=== PATIENT | male | born 1945 | race Caucasian/White ===

== ENCOUNTER → 2023-11-12 08:00 | Outpatient (REF) | payer MEDICARE, SELFPAY ==
[2023-11-12 09:09] LABS: % Basophils 0.8 % (0-2); % Eosinophils 3.4 % (0-6); % Monocytes 11.9 % (1.7-9.3); % Neutrophils 60.9 % (42.2-75.2); Absolute Eosinophils 0.1 10^3/uL (0-0.7); Absolute Lymphocytes 0.9 10^3/uL (1.2-3.4); Absolute Monocytes 0.5 10^3/uL (0.1-0.6); Absolute Neutrophils 2.3 10^3/uL (1.4-6.5); Hematocrit 41.3 % (39.0-52.0); Hemoglobin 13.7 g/dL (13.0-18.0); Mean Corp Hgb Conc. 33.2 g/dL (33.0-37.0); Mean Corpuscular Volume 90.6 fL (80.0-94.0); Mean Platelet Volume 10.3 fL (7.4-10.4); Nucleated Red Blood Cells % 0 % (-); Platelet Count 151 10^3/uL (130-400); Red Blood Cell Count 4.56 10^6/uL (4.70-6.10); Red Cell Dist. Width 14.2 % (11.5-14.5); White Blood Cell Count 3.8 10^3/uL (4.8-10.8)
[2023-11-12 10:18] LABS: Blood Urea Nitrogen 16 mg/dl (9-20); Calcium 9.9 mg/dl (8.4-10.2); Carbon Dioxide 27 mmol/L (22-30); Chloride 103 mmol/L (98-107); Glucose 85 mg/dl (70-99); Potassium 4.5 mmol/L (3.5-5.1); Sodium 139 mmol/L (135-145); eGFR > 60.00
== END ==
LOC: RCS 08:00
PROVIDERS: ATTENDING PHYSICIAN Orthopaedic Surgery; FAMILY PHYSICIAN Family Medicine; OTHER PHYSICIAN Internal Medicine Cardiovascular Disease; OTHER PHYSICIAN Internal Medicine Endocrinology, Diabetes & Metabolism
DX: Z01.818 Encounter for other preprocedural examination (principal); E06.3 Autoimmune thyroiditis
CPT/HCPCS: 36415; 80048; 84443; 85025; 93005

== ENCOUNTER 2024-02-01 00:22 | Inpatient (IN) | payer MEDICARE, SELFPAY ==
[2024-01-31 19:38] VITALS: BP 120/91
[2024-01-31] MEDS: ZOFRAN ODT (ORALLY DISINTEGRATING) 4 MG PO (19:55)
[2024-01-31 21:52] VITALS: BMI 33.5
[2024-01-31 22:00] VITALS: BP 112/72
[2024-01-31 22:10] LABS: % Basophils 0.2 % (0-2); % Eosinophils 0.7 % (0-6); % Immature Granulocytes 0.1 % (0-0.5); % Lymphocytes 6.4 % (20.5-51.1); % Neutrophils 84.6 % (42.2-75.2); Absolute Eosinophils 0.1 10^3/uL (0-0.7); Absolute Lymphocytes 0.6 10^3/uL (1.2-3.4); Absolute Monocytes 0.8 10^3/uL (0.1-0.6); Absolute Neutrophils 8.1 10^3/uL (1.4-6.5); Hematocrit 38.5 % (39.0-52.0); Hemoglobin 13.2 g/dL (13.0-18.0); Mean Corp Hgb Conc. 34.3 g/dL (33.0-37.0); Mean Corpuscular Hgb 30.5 pg (27.0-31.0); Mean Corpuscular Volume 88.9 fL (80.0-94.0); Mean Platelet Volume 9.6 fL (7.4-10.4); Nucleated Red Blood Cells % 0 % (-); Platelet Count 157 10^3/uL (130-400); Red Blood Cell Count 4.33 10^6/uL (4.70-6.10); Red Cell Dist. Width 13.7 % (11.5-14.5); White Blood Cell Count 9.6 10^3/uL (4.8-10.8)
[2024-01-31 22:20] LABS: Lactic Acid 1.9 mmol/L (0.7-2.0)
[2024-01-31 22:29] LABS: ALT (SGPT) 207 U/L (0-50); AST (SGOT) 543 U/L (17-59); Albumin 4.4 g/dl (3.5-5.0); Alkaline Phosphatase 132 U/L (38-126); Blood Urea Nitrogen 21 mg/dl (9-20); Calcium 9.2 mg/dl (8.4-10.2); Carbon Dioxide 27 mmol/L (22-30); Chloride 103 mmol/L (98-107); Estimated Creatinine Clearance 85 ml/min; Glucose 138 mg/dl (70-99); Potassium 4.1 mmol/L (3.5-5.1); Sodium 137 mmol/L (135-145); eGFR > 60.00
[2024-01-31 22:39] LABS: Lipase > 4000 U/L (23-300)
--- NOTE | 2024-01-31 23:06 | ED.GENMED ---
History of Present Illness
General
Chief Complaint: Abdominal Pain
Time Seen by Provider: 01/31/24 21:43
History of Present Illness
History of Present Illness:
78-year-old male presents the emergency department for evaluation of persistent upper abdominal pain since earlier this afternoon. He has had frequent bouts of similar pain radiating through to the thoracic back ongoing for the past several months.
Had an outpatient ultrasound earlier this month that showed cholelithiasis and a outpatient CT scan this morning that was unremarkable. Pain worsened abruptly after the scan prompting him come to the emergency department. Denies any vomiting or
diarrhea. No fevers, chills, dark urine, or felipe colored stool. No prior abd surgeries
Review of Systems
Review of Systems
Allergies reviewed?: Yes
All Other Systems: ROS reviewed and negative except as documented in HPI and ROS
Phy Exam
Physical Exam
Physical Exam:
GEN: Well appearing, NAD, WDWN
Eyes: PERRLA, EOMs intact, no scleral icterus
HENT: NCAT, oral mucosa moist
Lungs: CTAB, no wheezes, rales, rhonchi, normal chest wall excursion
Cardiac: RRR, no M/R/G, no peripheral edema. Radial pulses 2+ bilat
Abdomen: S, focal tenderness to the epigastrium, neg Manzano's
Neuro: AO x 3
MSK: No gross deformity or ecchymosis. No edema. No digital clubbing
Skin: No rashes, petechiae. Normal color, no pallor or jaundice.
Psych: Calm, cooperative, proper hygiene
Course
Orders/Labs/Results
Orders:
Orders
01/31/24 19:44
EKG [Electrocardiogram (*1)] Urgent
Reason for Study: Abdominal Pain
EKG- Treatment ONCE
01/31/24 19:53
Ondansetron Orally Disint [Zofran Odt (Orally Disintegrating)] 4 mg .ROUTE .[facility]
01/31/24 19:54
Ondansetron Orally Disint [Zofran Odt (Orally Disintegrating)] 4 mg PO NOW STA
01/31/24 22:02
CBC/With Diff [Complete Blood Count/With Diff] Urgent
CMP [Comprehensive Metabolic Panel] Urgent
Lactate Level [Lactic Acid] Urgent
Lipase Urgent
01/31/24 22:42
US Abdomen Limited Urgent
Comment:
Reason For Exam: gallstone pancreatitis
01/31/24 22:43
HYDROmorphone [Dilaudid] 0.5 mg IV NOW STA
01/31/24 23:32
Lactated Ringers [Lr] 1,000 ml IV BOLUS
Abnormal Lab Results
01/31/24
22:02
RBC 4.33 L 10^6/uL
(4.70-6.10)
Hct 38.5 L %
(39.0-52.0)
Absolute Neuts (auto) 8.1 H 10^3/uL
(1.4-6.5)
Absolute Lymphs (auto) 0.6 L 10^3/uL
(1.2-3.4)
Absolute Monos (auto) 0.8 H 10^3/uL
(0.1-0.6)
Neutrophils % 84.6 H %
(42.2-75.2)
Lymphocytes % 6.4 L %
(20.5-51.1)
BUN 21 H mg/dl
(9-20)
Glucose 138 H mg/dl
(70-99)
AST 543 H* U/L
(17-59)
ALT 207 H U/L
(0-50)
Alkaline Phosphatase 132 H U/L
(38-126)
Lipase > 4000 H* U/L
(23-300)
01/31/24 22:02
01/31/24 22:02
Vital Signs
Initial and Last Documented VS:
Initial Vital Signs
Temp Pulse Resp BP Pulse Ox
98.2 F 93 22 120/91 98
01/31/24 19:38 01/31/24 19:38 01/31/24 19:38 01/31/24 19:38 01/31/24 19:38
Last Documented Vital Signs
Temp Pulse Resp BP Pulse Ox
98.2 F 70 20 118/75 98
01/31/24 19:38 02/01/24 00:00 02/01/24 00:00 02/01/24 00:00 01/31/24 19:38
MDM/Problems Addressed
MDM/Problems Addressed:
78-year-old male presents with waxing waning abdominal pain. Although CT scan this morning was unremarkable, labs show transaminitis and pancreatitis. Repeat US without evidence of cholecystitis. Will admit for further eval and management
*Critical Care Note
Total Time (30-74mins, 75-104mins- exclusive of procedures): Not Applicable
ED Attending Note
-
Portions of this chart may have been created with voice recognition software.� Occasional wrong word or��sound alike� substitutions may have occurred due to the inherent limitations of voice recognition software.
Discharge Plan
Departure
Patient Disposition: Admit
Date of Disposition: 01/31/24
Time of Disposition: 23:47
Admit to: Med/Surg
Presentation/result/management discussed w/ accepting MD/DO: Hospitalist
Discharge Problem:
Acute gallstone pancreatitis
Interventions
Interventions:
*Risk Screen - Suicide Last Done: 01/31/24 21:52
*General Assessment Last Done: 01/31/24 21:52
*Neglect/Abuse Screening Last Done: 01/31/24 21:52
ED- Fall Risk Assessment Last Done: 01/31/24 21:52
*ED COVID-19 Vaccine History Last Done: 01/31/24 22:01
*Nursing Disposition Last Done: 02/01/24 00:59
AH-Fehosd-[facility] Assessment Last Done: 01/31/24 21:52
Discharge Date and Time
Discharge Date/Time: 02/01/24 01:00
[2024-01-31] MEDS: DILAUDID 0.5 MG IV (23:39)
[2024-01-31] MEDS: LR 1000 IV (23:43)
[2024-02-01] VITALS: BP 118/75
--- NOTE | 2024-02-01 00:25 | HPS.HSE ---
Family Physician
-
Family Physician: Taylor Gomez
Chief Complaint
-
Abd Pain
History of Present Illness
Patient is a 78y M with PMH significant for persistent A-Fib and hypothyroidism who presents to ED complaining of abdominal pain. Patient states that he had his initial episode in July of this year consisting of abdominal pain, flank pain and
N/V. He had severe episodes in July and again in September - lasting several days each time. His symptoms improved after several days of not eating. He noted dark / orange colored urine during those times. He reports 3-4 additional, less severe
episodes since that time - typically with symptoms lasting less than one hour.
He has been evaluated as an outpatient by his PCP and GI. US was done showing gallstones. CT was done (this AM) and was relatively unremarkable.
Following today's CT scan, patient had another episode of fairly severe abdominal and flank pain associated with nausea. He has not had emesis.
He presented to the ED for evaluation.
Currently he feels significantly improved s/p pain medication and antiemetics.
Medical History
Past Medical History
Past Medical History: Reports Other
Additional Past Medical History:
Persistent Atrial Fibrillation
Hypothyroidism
DJD
ALEX s/p UP3
Chronic HFpEF
Past Surgical History: Reports Other
Additional Past Surgical History:
Bilateral TKA
Elbow Surgery
UP3
Thyroid Biopsy
Social History
Tobacco: Non-smoker
Alcohol: Former (Prior social EtOH. No alcohol at all in 2 years.)
Family History
Family History: Not pertinent
Allergies / Home Medications
Allergies reflects when Allergies were last updated in [employer].
Home Medications with original date entered in [employer]
Allergy/Medication List:
Allergies
Allergy/AdvReac Type Severity Reaction Status Date / Time
meperidine [From Demerol] Allergy Anaphylaxis Verified 07/25/24 19:44
Penicillins Allergy Anaphylaxis Verified 01/31/24 19:44
Home Medications
furosemide 20 mg tablet 20 mg PO DAILY 01/31/24
levothyroxine 75 mcg tablet (Synthroid) 75 mcg PO HS 01/31/24
melatonin 10 mg tablet 10 mg PO HS PRN sleep 01/31/24
dbmxtvfz-pe-mahjj 300 mcg-K 60 mcg-lycop 600 mcg-lutein 300 mcg tablet (Centrum Silver Men) 1 tab PO DAILY 01/31/24
rivaroxaban 20 mg tablet (Xarelto) 20 mg PO DAILY 01/31/24
cholecalciferol (vitamin D3) 25 mcg (1,000 unit) tablet 25 mcg PO DAILY 02/01/24
polyethylene glycol 3350 17 gram oral powder packet (Miralax) 17 g PO DAILY 02/01/24
Review of Systems
-
History Source: Patient
A 12 point ROS was completed and negative except as noted: Yes
Constitutional: Denies Fever or Chills
EENT: Denies Sore Throat
Respiratory: Denies Cough or Trouble Breathing
Cardiac: Denies Chest Pain or Palpitations
Abdomen/GI: Reports Abdominal Pain and Nausea; Denies Vomiting, Diarrhea, Constipated or Bloody Stools
: Reports Flank Pain; Denies Dysuria or Frequency
Neurological: Denies Dizzy or Headache
Psych: Denies Depression or Anxiety
Physical Exam
Vital Signs
Vital Signs
Temp Pulse Resp BP Pulse Ox
98.2 F 73 20 112/72 98
01/31/24 19:38 01/31/24 21:52 01/31/24 21:52 01/31/24 22:00 01/31/24 19:38
Physical Exam
General: Other (78y M in mild distress secondary to pain.)
HEENT: Moist mucous membranes and PERRLA
Respiratory: Clear; No Wheezes, Rales or Rhonchi
Cardiac: Irregular Rhythm; No Murmur
GI: Soft, Non Distended, Normal Bowel Sounds and Other (Pos epigastric / LUQ tenderness without rebound or guarding.)
Musculoskeletal: No Clubbing, No Cyanosis and No Edema
Neuro: AO x 3
Laboratory Results
-
01/31/24 22:02
01/31/24 22:02
Laboratory Results
Lactic Acid 1.9 mmol/L (0.7-2.0) 01/31/24 22:
Total Bilirubin 1.0 mg/dl (0.2-1.3) 01/31/24 22:
AST 543 U/L (17-59) H* 01/31/24 22:
ALT 207 U/L (0-50) H 01/31/24 22:
Alkaline Phosphatase 132 U/L (38-126) H 01/31/24 22:
Lipase > 4000 U/L (23-300) H* 01/31/24 22:
Impression/Plan
-
A/P: Patient is a 78y M with PMH significant for A-Fib and hypothyroidism who presents to ED complaining of abdominal pain.
Symptomatic Cholelithiasis
Gallstone Pancreatitis secondary to the above
- Admit for further evaluation and treatment.
- NPO, IVF support, antiemetics and pain control.
- GI and Surgery evaluations for additional recommendations.
- Follow for clinical improvement.
- Hold Xarelto acutely in the event that any intervention is planned.
Persistent Atrial Fibrillation
- Stable. In A-Fib with controlled rate on no chronotropic medications.
- Hold Xarelto acutely as noted above.
Chronic HFpEF
- Stable. Holding Lasix acutely while on IVF replacement.
- Follow I/Os, daily weights, etc.
- Restart usual diuretic regimen once reliably taking POs.
Hypothyroidism
- Stable. Continue brand-necessary Synthroid.
DVT Prophylaxis: SCDs while Xarelto on hold.
Code Status: Full
[2024-02-01] MEDS: LR 1000 IV ×4 (01:42→22:14)
[2024-02-01] MEDS: MELATONIN 10 MG PO ×2 (01:53→22:22)
--- NOTE | 2024-02-01 02:14 | PTCARENOTE ---
Addendum entered by Kourtney Wilson RN 02/01/24 02:49:
Medications verified with pt. and he stated he had specific instructions from his doctor to take his synthroid at 2300 and requested to have 0600 time changed. Will talk with oncoming dayshift during shift change about time change.
Original Note:
Pt. arriving to [facility] from ED via stretcher and able to walk to room bathroom with steady gait. Pt. and oriented to room and hospital policies. Admission questions started to which pt's became agitated, interjected stating, 'He has been
asked the same questions six times already, what's the point of them entering them into the system if you're just going to ask them again?' Explained to patient and his the need for thorough documentation for admission screenings. Also
questioned patient about HFpEF diagnosis on H&P and usage of Lasix PO to which pt's responded, 'No he does not have heart failure. Why would they put that on there? I am very upset that they would put that. That doctor clearly didn't listen to
anything that we said down there. That's very dangerous for them to just be putting random diagnosis on his chart like that.' Will clarify diagnosis with attending and have provider speak with patient. Educated pt. that SCDs were ordered and pt.
familiar with DVT prevention devices but stated, 'I don't need to wear them tonight.' Educated pt. on need for DVT prevention while off blood thinner to which pt. firmly stated he did not want them on at this time. Pt. updated on plan of care,
including q4h vital signs assessment while on cardiac monitoring and pt. requested not to be woken up for 0300 vital signs check. Bed locked and in lowest position, side rails in place, call light within reach, and questions/concerns addressed at
time of assessment.
[2024-02-01 02:49] VITALS: BMI 33.5
[2024-02-01] MEDS: ZOFRAN 4 MG IV (04:15)
[2024-02-01] MEDS: DILAUDID 0.5 MG IV ×2 (04:16→16:22)
[2024-02-01 07:05] VITALS: BP 123/74
[2024-02-01 07:42] LABS: Hematocrit 37.1 % (39.0-52.0); Hemoglobin 12.4 g/dL (13.0-18.0); Mean Corp Hgb Conc. 33.4 g/dL (33.0-37.0); Mean Corpuscular Hgb 30.4 pg (27.0-31.0); Mean Corpuscular Volume 90.9 fL (80.0-94.0); Mean Platelet Volume 10.4 fL (7.4-10.4); Platelet Count 167 10^3/uL (130-400); Red Blood Cell Count 4.08 10^6/uL (4.70-6.10); Red Cell Dist. Width 13.8 % (11.5-14.5)
[2024-02-01 08:10] LABS: ALT (SGPT) 179 U/L (0-50); AST (SGOT) 263 U/L (17-59); Albumin 3.8 g/dl (3.5-5.0); Alkaline Phosphatase 147 U/L (38-126); Blood Urea Nitrogen 18 mg/dl (9-20); Calcium 8.7 mg/dl (8.4-10.2); Carbon Dioxide 29 mmol/L (22-30); Chloride 104 mmol/L (98-107); Direct Bilirubin 0.2 mg/dl (0.0-0.4); Estimated Creatinine Clearance 96 ml/min; Glucose 101 mg/dl (70-99); Sodium 136 mmol/L (135-145); Total Bilirubin 0.8 mg/dl (0.2-1.3); Total Protein 6.2 g/dl (6.3-8.2); eGFR > 60.00
[2024-02-01] MEDS: PROTONIX IV 40 MG IV (08:14)
[2024-02-01] MEDS: NSS (PRESERVATIVE FREE) 10 ML IV (08:14)
--- NOTE | 2024-02-01 09:04 | CON.GI ---
Addendum entered and electronically signed by Melanie Perez DO 02/01/24 12:06:
I saw and examined the patient.
The OVERNIGHT BABYSITTER or PA's note was reviewed and I agree with the note.
Comment: Robin Nieto is a 78-year-old male with past medical history of A-fib on Xarelto, hypothyroidism, ALEX, heart failure admitted with complaints of acute epigastric pain with radiation to his back found to have gallstone pancreatitis. He
has a history of nephrolithiasis and what sounds like biliary colic over the last few months, scheduled for an outpatient evaluation with Dr. Concepcion this Sunday. Labs on admission significant for elevated liver enzymes, AST 543, ALT 207, alk phos
132, T. bili 1.0, lipase greater than 4000. He was started on lactated Ringer's, GI and surgery both consulted. Unfortunately abdominal ultrasound with limited view of the common bile duct. Agree with MRI/MRCP to better evaluate the biliary tree
to rule out choledocholithiasis. Will eventually require cholecystectomy. Hold Xarelto until MRI results-- if AC is required, okay to start heparin gtt.
Original Note:
Consultation
-
Date/Time Consultation Requested: 02/01/24 @ 01:05
Date/Time Consultation Performed: 02/01/24 @ 09:15
Requesting Provider: Dr. Mckenzie
Performing Provider: RENETTA Wolfe; Dr. Melanie Perez
Reason for Consultation: Gallstone Pancreatitis
Medical History
Chief Complaint / HPI
Chief Complaint: abdominal pain
History of Present Illness:
The patient is a 78-year-old male with a past medical history significant for atrial fibrillation on Xarelto, hypothyroidism, DJD, obstructive sleep apnea, chronic heart failure, who presented to the emergency room with complaints of abdominal pain.
We are being asked to evaluate for gallstone pancreatitis. The patient reports that yesterday around 3:30 PM he suddenly developed pain in the middle of his abdomen at her sternum. He reports that the pain continued and progressed throughout his
abdomen and to his back. He reports that he has had several episodes similar to this in the past dating back to July and then again in September although he did not have evaluation for this as the pain had resolved. He notes this episode was more
severe with nausea although he denies vomiting. He reports having possible kidney stones in the past but this felt somewhat different. He ate a BLT yesterday for lunch but overall tries to eat very healthy. He otherwise denies any fevers, chills,
chest pain, shortness of breath, heartburn, dysphagia, dyne aphasia, change in bowel habits, signs of bleeding such as melena, medic easy, hematemesis, loss of appetite, or weight loss. He denies any alcohol use. He denies any new medications or
recent antibiotics. He is a non-smoker he denies marijuana use. He reports having an EGD done in 2017 for evaluation of nausea at [facility] which she reports was normal. He also had a colonoscopy around that time which also was
normal. He denies any family history of pancreatitis or pancreatic cancer. He otherwise denies family history of colorectal cancer. He denies any history of liver disease or hepatitis. He takes Xarelto which his last dose was taken yesterday
morning. He denies any prior episodes of pancreatitis. A CTA of the abdomen and pelvis was done upon evaluation in the ER showing no signs concerning findings to explain his pain. He underwent an ultrasound of the abdomen which did show
cholelithiasis, with no gallbladder wall distention or intrapelvic biliary ductal dilation although CBD not well-visualized. Labs showed an AST of 543, ALT 207, alk phos 132, total bilirubin 1.0, which are downtrending. Lipase was greater than
4000. He was made n.p.o., started on IV fluids with LR at 150 cc/h, and admitted for further evaluation by general surgery and GI.
Past Medical History
Past Medical History: Arrhythmias (A-fib on Xarelto), CHF, Hypothyroidism and Other (DJD, ALEX)
Past Surgical History: Orthopedic (Bilateral BKA, elbow surgery) and Other (Thyroid biopsy, UP3)
Social History
Tobacco: Non-Smoker
Alcohol: None
Drug: None
Family History
Family History: Reviewed & Not Pertinent
Allergies / Home Medications
Allergy/AdvReac Type Severity Reaction Status Date / Time
meperidine [From Demerol] Allergy Anaphylaxis Verified 01/31/24 19:44
Penicillins Allergy Anaphylaxis Verified 01/31/24 19:44
�Medication �Instructions �Recorded
furosemide 20 mg tablet 20 mg PO DAILY 01/31/24
levothyroxine 75 mcg tablet 75 mcg PO HS 01/31/24
(Synthroid)
melatonin 10 mg tablet 10 mg PO HS PRN sleep 01/31/24
ujsepeap-ez-gxsnm 300 mcg-K 60 1 tab PO DAILY 01/31/24
mcg-lycop 600 mcg-lutein 300 mcg
tablet (Centrum Silver Men)
rivaroxaban 20 mg tablet (Xarelto) 20 mg PO DAILY 01/31/24
cholecalciferol (vitamin D3) 25 25 mcg PO DAILY 02/01/24
mcg (1,000 unit) tablet
polyethylene glycol 3350 17 gram 17 g PO DAILY 02/01/24
oral powder packet (Miralax)
Review of Systems
-
History Source: Patient
Constitutional: Reports No Symptoms
EENT: Reports No Symptoms
Respiratory: Reports No Symptoms
Cardiac: Reports No Symptoms
Abdomen/GI: Reports Abdominal Pain and Nausea
: Reports No Symptoms
Musculoskeletal: Reports No Symptoms
Skin: Reports No Symptoms
Neurological: Reports No Symptoms
Endocrine: Reports No Symptoms
Hematologic/Lymphatic: Reports No Symptoms
Vital Signs
Temp Pulse Resp BP Pulse Ox
98.7 F 69 17 123/74 96
02/01/24 07:05 02/01/24 07:05 02/01/24 07:05 02/01/24 07:05 02/01/24 07:05
Physical Exam
Exam
General: Well Developed, Well Nourished and No Apparent Distress
HEENT: Normocephalic, Anicteric and Atraumatic
Respiratory: Clear
Cardiac: S1/S2 and Irregular Rhythm
Breast: Deferred by me
GI: Soft, Non Distended, Normal Bowel Sounds and Tender
Rectal: Deferred by Provider
Musculoskeletal: No Edema
Skin: Warm and Dry
Neuro: Awake, Alert and Oriented
Psych: Calm
Results
WBC 8.0 10^3/uL (4.8-10.8) 02/01/24 05:59
Hgb 12.4 g/dL (13.0-18.0) L 02/01/24 05:59
Hct 37.1 % (39.0-52.0) L 02/01/24 05:59
MCV 90.9 fL (80.0-94.0) 02/01/24 05:59
Plt Count 167 10^3/uL (130-400) 02/01/24 05:59
Absolute Neuts (auto) 8.1 10^3/uL (1.4-6.5) H 01/31/24 22:02
Sodium 136 mmol/L (135-145) 02/01/24 05:59
Potassium 4.0 mmol/L (3.5-5.1) 02/01/24 05:59
Chloride 104 mmol/L (98-107) 02/01/24 05:59
Carbon Dioxide 29 mmol/L (22-30) 02/01/24 05:59
BUN 18 mg/dl (9-20) 02/01/24 05:59
Creatinine 0.8 mg/dL (0.7-1.3) 02/01/24 05:59
Calcium 8.7 mg/dl (8.4-10.2) 02/01/24 05:59
Total Bilirubin 0.8 mg/dl (0.2-1.3) 02/01/24 05:59
AST 263 U/L (17-59) H 02/01/24 05:59
ALT 179 U/L (0-50) H 02/01/24 05:59
Alkaline Phosphatase 147 U/L (38-126) H 02/01/24 05:59
Lipase > 4000 U/L (23-300) H* 01/31/24 22:02
Diagnostic Image Results:
02/01/24 US abdomen: IMPRESSION: Limited examination secondary to intra-abdominal bowel gas. There is cholelithiasis without definite sonographic evidence of acute cholecystitis. The pancreas is poorly visualized on this examination.
01/31/24 CTA A/P: IMPRESSION: There is non-tapering of the infrarenal abdominal aorta measuring up to 2.2 cm, likely representing mild ectasia. There is mild atherosclerotic calcifications of the aorta and branch vessels without significant arterial
stenosis. 1.2 cm hyperdense, exophytic nodule along the inferior pole the right kidney, likely hemorrhagic/proteinaceous cyst. Degenerative changes of the thoracolumbar spine with anterior compression deformity of the L1 vertebral body. Left
inguinal hernia containing non-obstructed small bowel
Prior GI Procedures:
EGD: 2017 out of [facility], normal per patient
Colonoscopy: 2017, normal for patient with no polyps
Assessment / Plan
-
The patient is a 78-year-old male with a past medical history significant for atrial fibrillation on Xarelto, hypothyroidism, DJD, obstructive sleep apnea, chronic heart failure, who presented to the emergency room with complaints of abdominal pain,
found to have concern for pancreatitis with elevated lipase. Likely biliary etiology given presence of gallstones and elevated LFT's. He denies alcohol use. He reports 2 prior episodes earlier this year but did not have evaluation as they resolved.
His LFT's are improving. His last dose of Xarelto was in the am on 01/30.
Problem list:
-abdominal pain
-elevated lipase, with normal imaging of the pancreas
-abnormal LFT's
-chronic Afib on Xarelto
-CTA showing atherosclerotic disease, left inguinal hernia without bowel incarceration, 1.2cm hypderdense likely cyst of the right kidney
Other pertinent medical hx:
-hypothyroidism
-DJD
-ALEX
-chronic CHF
Recommendations:
-Etiology of symptoms consistent with pancreatitis, possibly secondary to choledocholithiasis given elevated LFT's and gallstones on imaging. Lipase elevated although with imaging that showed a normal pancreas. He denies alcohol use or new
medications.
-Will check MRCP given the elevated LFT's. His pain has improved, indicating that a stone may have passed but need to rule out. If positive will need ERCP after Xarelto wash out.
-Would continue to hold Xarelto pending the above
-General surgery evaluation pending for likely eventual CCY
-Follow LFT's
-Will check hepatitis serologies although this is less likely
-NPO
-Continue IVF with LR @ 150mL/hr
-He should continue to avoid alcohol
-Further management pending above
Data Reviewed
-
CT Scan: Report Reviewed by me
Ultrasound: Report Reviewed by me
-
-
Thank you for consultation and allowing me to participate in the patient's care. Please call the youth corrections officer GI physician during the after hours with any questions or concerns.
--- NOTE | 2024-02-01 09:24 | W.PN.HOSP.TC ---
Today's Communication/Plan
-
follow Lipase/LFT's
MRCP
Assessment / Plan
Assessment / Plan
A/P: Patient is a 78y M with PMH significant for A-Fib and hypothyroidism who presents to ED complaining of abdominal pain.
Symptomatic Cholelithiasis
Gallstone Pancreatitis secondary to the above
- Admit for further evaluation and treatment.
- NPO, IVF support, antiemetics and pain control.
- GI and Surgery evaluations for additional recommendations.
MRCP will be ordered
- Follow for clinical improvement.
- Hold Xarelto acutely in the event that any intervention is planned.
AST 543-->263
ALT 207-->179
Lipase >4000-->p
Persistent Atrial Fibrillation
- Stable. In A-Fib with controlled rate on no chronotropic medications.
- Hold Xarelto acutely as noted above.
Chronic HFpEF
- Stable. Holding Lasix acutely while on IVF replacement.
- Follow I/Os, daily weights, etc.
- Restart usual diuretic regimen once reliably taking POs.
Hypothyroidism
- Stable. Continue brand-necessary Synthroid.
DVT Prophylaxis: SCDs while Xarelto on hold.
Code Status: Full
Anticipated Discharge: > 48 hours
Subjective/Interval History
-
Date of Service: February 01, 2024
Abdominal pain has not resolved, but lessened
Objective Data
-
Labs:
Laboratory Results
01/31/24 02/01/24
22:02 05:59
WBC 9.6 8.0
Hgb 13.2 12.4 L
Hct 38.5 L 37.1 L
Plt Count 157 167
Sodium 137 136
Potassium 4.1 4.0
Chloride 103 104
Carbon Dioxide 27 29
BUN 21 H 18
Creatinine 0.9 0.8
Glucose 138 H 101 H
Calcium 9.2 8.7
Total Bilirubin 1.0 0.8
AST 543 H* 263 H
ALT 207 H 179 H
Alkaline Phosphatase 132 H 147 H
Vital Signs:
Vital Signs
Temp Pulse Resp BP Pulse Ox
98.7 F 69 17 123/74 96
02/01/24 07:05 02/01/24 07:05 02/01/24 07:05 02/01/24 07:05 02/01/24 07:05
Review of Systems
-
History Source: Patient, Physician and Coordinated Provider
Constitutional: Denies Fever
EENT: Reports No Symptoms Reported
Respiratory: Reports No Symptoms; Denies Trouble Breathing
Cardiac: Reports No Symptoms; Denies Chest Pain
Abdomen/GI: Reports Abdominal Pain and Nausea (better)
Genitourinary: Reports No Symptoms
Physical Exam
-
General: Well Developed, Well Nourished and No Apparent Distress
HEENT: Normocephalic, Atraumatic and Moist Mucous Membranes
Respiratory: Clear to Auscultation; Negative Wheezes, Rales or Rhonchi
Cardiac: Regular Rhythm and S1/S2
GI: Soft, Nondistended and Tender (primary epigastric area); Negative Normal Bowel Sounds (decreased, but present)
Neuro: Awake, Alert and Oriented
--- NOTE | 2024-02-01 09:55 | W.PN.GS2 ---
Subjective Data
-
Date of Service: February 01, 2024
Objective Data
-
Vital Signs
Temp Pulse Resp BP Pulse Ox
37.1 C 69 17 123/74 96
02/01/24 07:05 02/01/24 07:05 02/01/24 07:05 02/01/24 07:05 02/01/24 07:05
Lab Results
02/01/24 05:59
02/01/24 05:59
Calcium 8.7 mg/dl (8.4-10.2) 02/01/24 05:59
Total Bilirubin 0.8 mg/dl (0.2-1.3) 02/01/24 05:59
Direct Bilirubin 0.2 mg/dl (0.0-0.4) 02/01/24 05:59
AST 263 U/L (17-59) H 02/01/24 05:59
ALT 179 U/L (0-50) H 02/01/24 05:59
Alkaline Phosphatase 147 U/L (38-126) H 02/01/24 05:59
Total Protein 6.2 g/dl (6.3-8.2) L 02/01/24 05:59
Albumin 3.8 g/dl (3.5-5.0) 02/01/24 05:59
[2024-02-01 11:00] VITALS: BP 133/74
--- NOTE | 2024-02-01 11:33 | CON.GS ---
Consultation
-
Date/Time Consultation Requested: February 01, 2024
Date/Time Consultation Performed: February 01, 2024
Requesting Provider: ED
Performing Provider: Ashvin Chavez - PGY-1 Resident / Dr. Concepcion
Reason for Consultation: Abdominal Pain
Medical History
-
Chief Complaint: Abdominal Pain
History of Present Illness:
� HPI :
78 yo male with no relevant PMHx/PSHx, who presented to the ED yesterday with a severe episode of recurrent LUQ abdominal pain that radiated posteriorly toward bilateral flanks and of sudden onset that was accompanied by significant N/V and not
related to physical activity or any notable trigger. Pt stated rated the pain as an 8.5/10 in severity at the time of initial presentation and stated it was only mildly relieve after receiving a PRN dose of Dilaudid�but that it has persisted despite
receiving two PRN doses O/N.
Patient has a history of similar episodes in the past, of those three to four described as minor episodes that resolved themselves after 45 minutes and two major episodes occurring in July 2022 and September 2022 that lasted for approx. 12 hours, and
were associated with six vomiting episodes that subsequently resolved spontaneously during that time; but decided to come in this time due to the pain persistence/severity and subjective gallbladder stones previously suspected/informed by his PCP
and/or Fence Installer.
�Admission was notable for severely elevated Lipase levels and multiple suspected gallstones on ABD U/S, followed by an incidental L-Inguinal Hernia with multiple small-bowel loops contained in a non-obstructive pattern on ABD/Pelvic CT.
Past Medical History
Past Medical History: Hypothyroidism
Past Surgical History: Other (No Previews Intra-Abdominal Surgeries)
Social History
Tobacco: Non-Smoker
Alcohol: None
Drug: None
Family History
Family History: Reviewed & Noncontributory, Cancer (Prostate - Father) and Other
Allergies / Home Medications
Allergy/AdvReac Type Severity Reaction Status Date / Time
meperidine [From Demerol] Allergy Anaphylaxis Verified 07/25/24 19:44
Penicillins Allergy Anaphylaxis Verified 01/31/24 19:44
�Medication �Instructions �Recorded �Confirmed �Type
furosemide 20 mg tablet 20 mg PO DAILY 01/31/24 02/01/24 History
levothyroxine 75 mcg tablet 75 mcg PO HS 01/31/24 02/01/24 History
(Synthroid)
melatonin 10 mg tablet 10 mg PO HS PRN sleep 01/31/24 02/01/24 History
xnhafdtb-sv-tsxud 300 mcg-K 60 1 tab PO DAILY 01/31/24 02/01/24 History
mcg-lycop 600 mcg-lutein 300 mcg
tablet (Centrum Silver Men)
rivaroxaban 20 mg tablet (Xarelto) 20 mg PO DAILY 01/31/24 02/01/24 History
cholecalciferol (vitamin D3) 25 25 mcg PO DAILY 02/01/24 02/01/24 History
mcg (1,000 unit) tablet
polyethylene glycol 3350 17 gram 17 g PO DAILY 02/01/24 02/01/24 History
oral powder packet (Miralax)
Review of Systems
-
History Source: Patient
All other systems: Negative unless noted
EENT: No Symptoms
Cardiac: No Symptoms
Abdomen/GI: Abdominal Pain, Nausea, Vomiting and Pain
: Flank Pain
Musculoskeletal: Muscle Pain
Skin: No Symptoms
Neurological: Weakness
A 10 point review of systems was completed, and was negative except as per HPI.
Physical Exam
Vital Signs
Temp Pulse Resp BP Pulse Ox
37.1 C 69 17 123/74 96
02/01/24 07:05 02/01/24 07:05 02/01/24 07:05 02/01/24 07:05 02/01/24 07:05
01/31/24 02/01/24 02/02/24
06:59 06:59 06:59
Actual Weight 106 kg
Body Mass Index (BMI) 33.5
Lab Results
02/01/24 05:59
02/01/24 05:59
WBC 8.0 10^3/uL (4.8-10.8) 02/01/24 05:59
Hgb 12.4 g/dL (13.0-18.0) L 02/01/24 05:59
Hct 37.1 % (39.0-52.0) L 02/01/24 05:59
Plt Count 167 10^3/uL (130-400) 02/01/24 05:59
Abs Immat Gran (auto) 0.0 10^3/uL (0-0.05) 01/31/24 22:02
Neutrophils % 84.6 % (42.2-75.2) H 01/31/24 22:02
Physical Exam
General: Well Developed; Negative Well Nourished, Pain or Other (Mildly visible distress or discomfort)
HEENT: Normocephalic and Anicteric
Respiratory: Negative Non Labored Respirations
GI: Obese; Negative Soft, Non Distended (Midly Distended ), Tender, Distended or Other ( Mild TTP at Localized to LUQ )
Skin: Warm
Neuro: Negative Awake, Alert, Oriented or AO x 3
Psych: Negative Calm or Other (Midly Uncomfortable / Unease)
Data Reviewed
-
CT Scan: Image Personally Visualized and interpreted and Report Reviewed by me
Ultrasound: Image Personally Visualized and interpreted and Report Reviewed by me
Labs: Labs Reviewed by me
Critical Care Time (in minutes): ~25 Min.
Total Time Spent with Patient (in minutes): ~45 Min.
Assessment / Plan
-
� ASSESSMENT:
78-year-old male, with no significant PSHx or PMHx, with recurrent severe abdominal pain localized to the LUQ that radiates posteriorly bilaterally and is associated with prominent N/V � presenting with possible Cholelithiasis/Choledocholithiasis
and Gallstones Pancreatitis Vs possible SBOp due to recently noticed L-Inguinal Hernia with contained loops of SB on ABD/Pelvic CT.
� PLAN:
NPO
Multimodal pain control analgesia
Continue IV fluid hydration / Supportive care
Plan for reviewing / repeating further imaging studies for better characterization as needed
Continue to follow / correlate laboratory findings with clinical presentation / close pt monitoring
Anticipate need for potential surgical intervention / Continue to hold Xarelto (Last-Dose - Morning)
DVT ppx
GI ppx
[2024-02-01] MEDS: TYLENOL 650 MG PO ×2 (12:35→22:21)
[2024-02-01 13:00] LABS: Lipase > 4000 U/L (23-300)
--- NOTE | 2024-02-01 13:47 | CON.GS ---
Consultation
-
Performing Provider: Carlene
Reason for Consultation: GS pancreatitis
Medical History
-
Chief Complaint: Abdominal pain
History of Present Illness:
Patient is a 78-year-old male who presented to the emergency department yesterday evening after developing the acute onset of abdominal pain following a BLT for lunch. He has had numerous episodes like this in the past but usually they are milder
in severity. The pain continued to get worse there was radiation into the back. He had nausea but no vomiting. Associated anorexia. Due to the severity of symptoms he presented for emergency department evaluation and was found to have presumed
gallstone mediated pancreatitis.
Symptoms are bit improved but still has tenderness/discomfort. Mild anorexia but no nausea. Pain still radiating into the back and 'kidney area'.
Past Medical History
Past Medical History: Other (History of A-fib, hypothyroidism CHF with preserved ejection fraction, ALEX, DJD)
Past Surgical History: Orthopedic (Total knee replacements)
Social History
Tobacco: Non-Smoker
Alcohol: None
Personal:
Living: With Family
Family History
Family History: Reviewed & Not Pertinent
Allergies / Home Medications
Allergy/AdvReac Type Severity Reaction Status Date / Time
meperidine [From Demerol] Allergy Anaphylaxis Verified 01/31/24 19:44
Penicillins Allergy Anaphylaxis Verified 01/31/24 19:44
�Medication �Instructions �Recorded �Confirmed �Type
furosemide 20 mg tablet 20 mg PO DAILY 01/31/24 02/01/24 History
levothyroxine 75 mcg tablet 75 mcg PO HS 01/31/24 02/01/24 History
(Synthroid)
melatonin 10 mg tablet 10 mg PO HS PRN sleep 01/31/24 02/01/24 History
jwejeafa-ub-yuqdx 300 mcg-K 60 1 tab PO DAILY 01/31/24 02/01/24 History
mcg-lycop 600 mcg-lutein 300 mcg
tablet (Centrum Silver Men)
rivaroxaban 20 mg tablet (Xarelto) 20 mg PO DAILY 01/31/24 02/01/24 History
cholecalciferol (vitamin D3) 25 25 mcg PO DAILY 02/01/24 02/01/24 History
mcg (1,000 unit) tablet
polyethylene glycol 3350 17 gram 17 g PO DAILY 02/01/24 02/01/24 History
oral powder packet (Miralax)
Review of Systems
-
History Source: Patient
All other systems: Negative unless noted
A 10 point review of systems was completed, and was negative except as per HPI.
Physical Exam
Vital Signs
Temp Pulse Resp BP Pulse Ox
100.0 F 75 17 133/74 97
02/01/24 11:00 02/01/24 11:00 02/01/24 11:00 02/01/24 11:00 02/01/24 11:00
01/31/24 02/01/24 02/02/24
06:59 06:59 06:59
Actual Weight 106 kg
Body Mass Index (BMI) 33.5
Lab Results
02/01/24 05:59
02/01/24 05:59
WBC 8.0 10^3/uL (4.8-10.8) 02/01/24 05:59
Hgb 12.4 g/dL (13.0-18.0) L 02/01/24 05:59
Hct 37.1 % (39.0-52.0) L 02/01/24 05:59
Plt Count 167 10^3/uL (130-400) 02/01/24 05:59
Abs Immat Gran (auto) 0.0 10^3/uL (0-0.05) 01/31/24 22:02
Neutrophils % 84.6 % (42.2-75.2) H 01/31/24 22:02
Physical Exam
General: Well Developed, Well Nourished, No Apparent Distress and Other (Resting comfortably in hospital bed)
HEENT: Normocephalic, Anicteric and Moist Mucous Membranes
Respiratory: Non Labored Respirations
GI: Soft, Non Distended and Tender (Mild tenderness palpation epigastrium and right upper quadrant. No rebound rigidity or guarding. No Manzano sign.)
Skin: Warm
Neuro: AO x 3 and Nonfocal/Grossly Intact
Data Reviewed
-
CT Scan: Image Personally Visualized and interpreted
Ultrasound: Image Personally Visualized and interpreted, Report Reviewed by me, Discussed with Physician and Discussed with Patient
Labs: Labs Reviewed by me
Assessment / Plan
-
Assessment: 78-year-old male presenting with acute pancreatitis, presumed gallstone mediated. Known history of gallstones and previous episodes of biliary colic.
CT imaging with a bit of haziness around the head of the pancreas. Gallbladder which appears to be physiologically distended. No radiopaque stones. Bile duct system of the prominent. Ultrasound abdomen confirms gallbladder with stones. Bile
duct imaging obscured by overlying bowel gas pattern.
Plan: Given persistent elevation of lipase greater than 4000 today agree with further imaging with MRCP to evaluate for possible choledocholithiasis.
Continue supportive care for acute pancreatitis.
Discussed with patient role for cholecystectomy for presumed gallstone mediated pancreatitis. Timing to be determined pending MR results. Continue to hold therapeutic anticoagulation. Patient advises me that his is scheduled to have a mitral
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 We will further discuss pending MR results.
--- NOTE | 2024-02-01 15:26 | CM ---
Initial assessment complete with patient and who live in a 3 story townhouse with B/B on 3rd with 1/2 bath on 1st and 2 steps to enter. DME in home is [employer] and [employer]. Patient does not use. No in-home services. RN INVASIVE patient was independent and
drove, works on projects in the home. Has had [facility] in the past for HH. No history of psychiatric hospitalizations. Pharmacy is [facility] on [address] [facility] in [place] and PCP is Taylor Gomez. Anticipate no needs at discharge.
--- NOTE | 2024-02-01 18:26 | PTCARENOTE ---
Patient HR was dropping into that low 40s and patient having frequent pauses. Dr. Story made aware. Dr. Story to order a cardiology consult. Dr. Story also made aware that patient is refusing SCD's. Patient has his own tubi dermatologist socks.
[2024-02-01 19:30] VITALS: BP 128/61
[2024-02-01] MEDS: SYNTHROID 75 MCG PO (22:14)
[2024-02-01] MEDS: DILAUDID IV (22:22)
[2024-02-01 23:08] VITALS: BP 121/74
[2024-02-02 03:12] VITALS: BP 127/68
[2024-02-02 03:13] VITALS: BMI 32.4
[2024-02-02] MEDS: LR 1000 IV ×3 (04:59→17:03)
[2024-02-02 07:23] LABS: % Basophils 0.4 % (0-2); % Eosinophils 3.4 % (0-6); % Immature Granulocytes 0.3 % (0-0.5); % Lymphocytes 8.8 % (20.5-51.1); % Monocytes 12.3 % (1.7-9.3); % Neutrophils 74.8 % (42.2-75.2); Absolute Eosinophils 0.3 10^3/uL (0-0.7); Absolute Lymphocytes 0.7 10^3/uL (1.2-3.4); Absolute Neutrophils 5.9 10^3/uL (1.4-6.5); Hematocrit 35.3 % (39.0-52.0); Hemoglobin 11.9 g/dL (13.0-18.0); Mean Corp Hgb Conc. 33.7 g/dL (33.0-37.0); Mean Corpuscular Hgb 30.5 pg (27.0-31.0); Mean Corpuscular Volume 90.5 fL (80.0-94.0); Mean Platelet Volume 10.2 fL (7.4-10.4); Nucleated Red Blood Cells % 0 % (-); Platelet Count 145 10^3/uL (130-400); Red Cell Dist. Width 13.8 % (11.5-14.5); White Blood Cell Count 7.9 10^3/uL (4.8-10.8)
[2024-02-02 07:50] LABS: ALT (SGPT) 102 U/L (0-50); AST (SGOT) 96 U/L (17-59); Albumin 3.6 g/dl (3.5-5.0); Alkaline Phosphatase 115 U/L (38-126); Blood Urea Nitrogen 13 mg/dl (9-20); Calcium 8.8 mg/dl (8.4-10.2); Carbon Dioxide 29 mmol/L (22-30); Chloride 103 mmol/L (98-107); Estimated Creatinine Clearance 94 ml/min; Glucose 87 mg/dl (70-99); Lipase 1106 U/L (23-300); Potassium 4.1 mmol/L (3.5-5.1); Sodium 136 mmol/L (135-145); Total Bilirubin 1.6 mg/dl (0.2-1.3); eGFR > 60.00
[2024-02-02] MEDS: NSS (PRESERVATIVE FREE) 10 ML IV (07:56)
[2024-02-02] MEDS: PROTONIX IV 40 MG IV (07:56)
[2024-02-02 07:58] VITALS: BP 123/86
--- NOTE | 2024-02-02 08:31 | W.PN.HOSP.TC ---
Addendum entered and electronically signed by Issa Story MD 02/02/24 09:04:
will ad Levaquin/Flagyl, pending planned surgery
Original Note:
Today's Communication/Plan
-
Cardio consult
await decision on timing of planned surgical intervention
Assessment / Plan
Assessment / Plan
A/P: Patient is a 78y M with PMH significant for A-Fib and hypothyroidism who presents to ED complaining of abdominal pain.
Symptomatic Cholelithiasis
Gallstone Pancreatitis secondary to the above
- Doing better, pain resolved
- Call placed to surgery regarding diet vs proceeding with surgery. IVF support, antiemetics and pain control.
- GI and Surgery input appreciated
MRCP: 1. Cholelithiasis without MR evidence for acute cholecystitis.
2. No choledocholithiasis or biliary dilatation.
3. Trace ascites.
- Follow for clinical improvement.
- Hold Xarelto acutely in the event that any intervention is planned. Await decision on timing of planned surgery
AST 543-->263-->96
ALT 207-->179-->102
Lipase >4000-->1106
discussed with GI, then met on second visit with pt and in room. They are weighing pros and cons of proceeding with surgery now. Encouraged them to follow the expertise of Dr. Vasquez in making a decision
spent >20 minutes reviewing aspects with them.
Persistent Atrial Fibrillation
- Stable. In A-Fib with controlled rate on no chronotropic medications.
- Hold Xarelto acutely as noted above.
Call placed to Dr. Chavez, and discussed. As per nursing had slow rates yesterday afternoon, down to 40/m along with episodes of 2.5 second pauses. Will request cardio input prior to potential surgical intervention
Chronic HFpEF
- Stable. Holding Lasix acutely while on IVF replacement.
- Follow I/Os, daily weights, etc.
- Restart usual diuretic regimen once reliably taking POs.
Hypothyroidism
- Stable. Continue brand-necessary Synthroid. Pt wants to take at 11 PM as he does at home, timing adjusted
DVT Prophylaxis: SCDs while Xarelto on hold.
extensive multiple visits >60 minutes in total
Code Status: Full
Anticipated Discharge: 24 - 48 hours
Subjective/Interval History
-
Date of Service: February 02, 2024
Generally feeling better, pain essentially resolved
Objective Data
-
Labs:
Laboratory Results
02/02/24
05:49
WBC 7.9
Hgb 11.9 L
Hct 35.3 L
Plt Count 145
Sodium 136
Potassium 4.1
Chloride 103
Carbon Dioxide 29
BUN 13
Creatinine 0.8
Glucose 87
Calcium 8.8
Total Bilirubin 1.6 H
AST 96 H
ALT 102 H
Alkaline Phosphatase 115
Vital Signs:
Vital Signs
Temp Pulse Resp BP Pulse Ox
98.4 F 69 16 123/86 94
02/02/24 07:58 02/02/24 07:58 02/02/24 07:58 02/02/24 07:58 02/02/24 07:58
I&O
02/01/24 02/02/24 02/03/24
06:59 06:59 06:59
Intake Total 1800 / 1800
Balance 1800 / 1800
Review of Systems
-
History Source: Patient, Physician and Coordinated Provider
Constitutional: Denies Fever
EENT: Reports No Symptoms Reported
Respiratory: Reports No Symptoms; Denies Trouble Breathing
Cardiac: Reports No Symptoms; Denies Chest Pain
Abdomen/GI: Reports Abdominal Pain (resolved) and Nausea (resolved)
Genitourinary: Reports No Symptoms
Physical Exam
-
General: Well Developed, Well Nourished and No Apparent Distress
HEENT: Normocephalic, Atraumatic and Moist Mucous Membranes
Respiratory: Clear to Auscultation; Negative Wheezes, Rales or Rhonchi
Cardiac: Regular Rhythm and S1/S2
GI: Soft, Nondistended and Tender (primary epigastric area); Negative Normal Bowel Sounds (decreased, but present)
Neuro: Awake, Alert and Oriented
--- NOTE | 2024-02-02 09:16 | W.PN.GI.CBS2 ---
Today's Communication / Plan
-
Clinically improving, lipase and liver enzymes improving. Timing of Cholecystectomy TBD.
Assessment / Plan
-
Robin Nieto is a 78-year-old male with past medical history of A-fib on Xarelto, hypothyroidism, ALEX, heart failure admitted with complaints of acute epigastric pain with radiation to his back found to have gallstone pancreatitis
Gallstone pancreatitis--meets criteria based on lipase elevation and RUQ/epigastric pain (2/3)
-Lipase initially >4000 --> 1106 today
-transaminases improving, Tbili with mild elevation today to 1.6
-MRCP 01/31 with evidence of cholelithiasis w/o evidence of acute cholecystitis; pancreas appears normal, no PD dilatation. No CBD dilation
-symptomatically, patient feels significantly better, pain well controlled
-Given no evidence of choledocholithiasis, no role for ERCP
-c/w IVF
-needs cholecystectomy, defer to surgery on timing as well as advancing diet based on when surgery is planned
GI will sign off, please call with questions.
Subjective
Subjective
Date of Service: February 02, 2024
Patient reports resolution of abdominal pain, lipase is downtrending, 1106 today. Liver enzymes also improving, AST 96, ALT 102, T. bili 1.6 from 0.8 yesterday. MRCP does not show any evidence of choledocholithiasis.
Objective
Data Reviewed
Laboratory Data:
Laboratory Results
02/02/24 05:49
02/02/24 05:49
Laboratory Results
Total Bilirubin 1.6 mg/dl (0.2-1.3) H 02/02/24 05:49
AST 96 U/L (17-59) H 02/02/24 05:49
ALT 102 U/L (0-50) H 02/02/24 05:49
Alkaline Phosphatase 115 U/L (38-126) 02/02/24 05:49
Lipase 1106 U/L (23-300) H* 02/02/24 05:49
Vital Signs and I&O:
Vital Signs
Temp Pulse Resp BP Pulse Ox
98.4 F 69 16 123/86 94
02/02/24 07:58 02/02/24 07:58 02/02/24 07:58 02/02/24 07:58 02/02/24 08:00
I&O
02/01/24 02/02/24 02/03/24
06:59 06:59 06:59
Intake Total 1800 / 1800
Balance 1800 / 1800
Physical Exam
Physical Exam
GENERAL: In no acute distress, appears comfortable
ABDOMEN: +BS; soft, non-tender and non-distended; no rebound or guarding
[2024-02-02] MEDS: FLAGYL 500 MG 100 IV ×2 (09:37→17:02)
--- NOTE | 2024-02-02 10:37 | CON.CAR ---
Addendum entered and electronically signed by Shiva Chavez MD 02/02/24 11:13:
I saw and examined the patient.
The ENGINEERING ASSOCIATE or PA's note was reviewed and I agree with the note.
78-year-old male known to me from previous outpatient visits. 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
and was admitted with gallstone pancreatitis initial lipase greater than 4000 MRCP with evidence of cholelithiasis acute cholecystitis. Now being evaluated by surgery for cholecystectomy. Patient seen as part of a preoperative evaluation. He had
no symptoms to suggest angina or CHF. ECG shows atrial fibrillation. He has had at times relatively slow ventricular response but has not had indication for pacing. He underwent orthopedic surgery recently without any cardiac issues. Patient's
had no new symptoms since that time. On telemetry he has had some periods of asymptomatic bradycardia and some pauses 2-2.8 point seconds some which clearly correlate with sleep. Overall condition is stable to proceed with surgery. He does have
some increased risk due to past history including atrial fibrillation and bradycardia. Preoperative risk is similar to the risk he had prior to recent orthopedic surgery. Anticoagulation is currently being held due to presentation with
pancreatitis/cholecystitis and the need for surgery. Reviewed issues with the patient and his at bedside
-Monitor on telemetry
-Resume anticoagulation as soon as it is safe postoperatively
.
Note patient states that he had an outside abdominal ultrasound suggesting dilation of the abdominal aorta. He had a CT scan here which showed mild ectasia 2.2 cm. No additional changes in management required for this patient can have a follow-up
ultrasound in 1 year.
Original Note:
Consultation
Consultation Request
Date/Time Consultation Requested: 02/02/24 9a
Date/Time Consultation Performed: 02/02/24 10:30a
Requesting Provider: Dr. Story
Performing Provider: RENETTA Yousif for Dr. Chavez
Reason for Consultation: slow Afib
Medical History
-
Chief Complaint: abdominal pain
History of Present Illness:
Mr. Nieto is a 78 yo male with permanent Afib on Xarelto, hypothyroidism and dilated aortic root/ascending aorta 4.4cm, who presents to the ER with c/o abdominal pain. He is admitted with symptomatic cholelithiasis/gallstone pancreatitis and
surgery is planning for the OR. We are consulted for bradycardia/slow Afib with 2 second pauses. He has permanent Afib with prior Afib rates in the 50s-60s, asymptomatic. He denies any symptoms or cardiac issues. Currently he c/o mild abdominal
pain.
Past Medical History
Past Medical History: Other (as above)
Past Surgical History: Other (as above)
Social History
Tobacco: Former Smoker
Alcohol: Occasional
Personal:
Living: With Family
Family History
Family History: Reviewed & Not Pertinent
Allergies / Home Medications
Allergy/AdvReac Type Severity Reaction Status Date / Time
meperidine [From Demerol] Allergy Anaphylaxis Verified 01/31/24 19:44
Penicillins Allergy Anaphylaxis Verified 01/31/24 19:44
�Medication �Instructions �Recorded �Confirmed �Type
furosemide 20 mg tablet 20 mg PO DAILY 01/31/24 02/01/24 History
levothyroxine 75 mcg tablet 75 mcg PO HS 01/31/24 02/01/24 History
(Synthroid)
melatonin 10 mg tablet 10 mg PO HS PRN sleep 01/31/24 02/01/24 History
tinbunqm-da-gwslc 300 mcg-K 60 1 tab PO DAILY 01/31/24 02/01/24 History
mcg-lycop 600 mcg-lutein 300 mcg
tablet (Centrum Silver Men)
rivaroxaban 20 mg tablet (Xarelto) 20 mg PO DAILY 01/31/24 02/01/24 History
cholecalciferol (vitamin D3) 25 25 mcg PO DAILY 02/01/24 02/01/24 History
mcg (1,000 unit) tablet
polyethylene glycol 3350 17 gram 17 g PO DAILY 02/01/24 02/01/24 History
oral powder packet (Miralax)
Review of Systems
-
History Source: Patient
All other systems: Negative unless noted
Physical Exam
Vital Signs
Temp Pulse Resp BP Pulse Ox
98.4 F 69 16 123/86 94
02/02/24 07:58 02/02/24 07:58 02/02/24 07:58 02/02/24 07:58 02/02/24 08:00
Lab Results
02/02/24 05:49
02/02/24 05:49
Physical Exam
General: Well Developed, Well Nourished and No Apparent Distress
HEENT: Normocephalic, Anicteric and Moist Mucous Membranes
Respiratory: Clear and Non Labored Respirations
Cardiac: S1/S2 and Irregular Rhythm
Breast: Deferred by me
GI: Soft and Tender
Rectal: Deferred by Provider
Genito-urinary: Clear Urine
Musculoskeletal: No Clubbing and No Edema
Skin: Warm and Dry
Neuro: AO x 3
Psych: Calm
Impression / Plan
-
Bradycardia/slow Afib - stable.
- asymptomatic.
- not on rate controlling meds.
- no significant pauses on tele.
- continue to monitor on tele.
Afib - permanent.
- rates in the 50s-60s.
- typically on Xarelto, on hold since plans for OR.
- resume Xarelto post op when safe.
Dilated aortic root - ascending aorta 4.4cm.
- stable.
Hypothyroidism - stable.
Data Reviewed
-
EKG: Tracing Personally Visualized and interpreted (Afib 70 bpm)
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
Labs: Labs Reviewed by me
Old Records: Reviewed
[2024-02-02] MEDS: LEVAQUIN 100 IV (10:46)
[2024-02-02 11:04] VITALS: BP 129/71
--- NOTE | 2024-02-02 12:27 | W.PN.GS2 ---
Today's Communication / Plan
-
-- Tentative plan for laparoscopic cholecystectomy tomorrow
-- Clears, NPO PM
-- Repeat CMP in AM
Assessment / Plan
-
Patient is a 78 yo M p/w gallstone pancreatitis
Clinically improved, less pain
MRCP (02/01/2024): No evidence of cholecystitis, no evidence of choledocholithiasis
AVSS
Bump in bilirubin and LFTs possibly related to passed stone
The natural history and pathophysiology of biliary and stone disease has been discussed. Anatomy was reviewed. Role of cholecystectomy in preventing future episodes of choledocholithiasis or gallstone pancreatitis were reviewed. We discussed a
laparoscopic cholecystectomy with possible cholangiogram. The procedure itself, as well as the risks, benefits, and alternatives was discussed. Specifically, we discussed the risks of bleeding, infection, injury to surrounding structures (bowel,
bile ducts), CBD injury, need for open procedure. We discussed that given his multiple prior episodes he likely has an element of chronic cholecystitis with a potential more difficult gallbladder and increased risk for complications. Typical post
procedure recovery was discussed. All questions answered.
Plan for clears, NPO past midnight. Repeat CMP in AM. Tentative plan for lap lucita with IOC tomorrow.
-- Tentative plan for laparoscopic cholecystectomy tomorrow
-- Clears, NPO PM
-- Repeat CMP in AM
Subjective Data
-
Date of Service: February 02, 2024
Reports abdominal pain improved. No nausea or vomiting. No fevers.
Objective Data
-
Intake and Output
02/01/24 02/02/24 02/03/24
06:59 06:59 06:59
Intake Total 1800 / 1800 200 / 200
Balance 1800 / 1800 200 / 200
Intake:
IV fluids (Total) 1800 / 1800
IV piggybacks 200 / 200
Other:
Number of approximated SMALL 1
amounts of urine
Number of approximated MODERATE 2
amounts of urine
Vital Signs
Temp Pulse Resp BP Pulse Ox
98.3 F 68 18 129/71 96
02/02/24 11:04 02/02/24 11:04 02/02/24 11:04 02/02/24 11:04 02/02/24 11:04
Lab Results
02/02/24 05:49
02/02/24 05:49
Calcium 8.8 mg/dl (8.4-10.2) 02/02/24 05:49
Total Bilirubin 1.6 mg/dl (0.2-1.3) H 02/02/24 05:49
Direct Bilirubin 0.2 mg/dl (0.0-0.4) 02/01/24 05:59
AST 96 U/L (17-59) H 02/02/24 05:49
ALT 102 U/L (0-50) H 02/02/24 05:49
Alkaline Phosphatase 115 U/L (38-126) 02/02/24 05:49
Total Protein 6.0 g/dl (6.3-8.2) L 02/02/24 05:49
Albumin 3.6 g/dl (3.5-5.0) 02/02/24 05:49
Physical Exam
-
Gen: NAD
Abd: soft, mild tenderness, ND, non-peritoneal
[2024-02-02 15:05] VITALS: BP 123/66
[2024-02-02] MEDS: TYLENOL 650 MG PO ×2 (15:45→22:57)
[2024-02-02 19:21] VITALS: BP 123/71
[2024-02-02] MEDS: SYNTHROID 75 MCG PO (22:55)
[2024-02-02] MEDS: MELATONIN 10 MG PO (22:57)
[2024-02-02 23:10] VITALS: BP 129/71
[2024-02-03] VITALS (12 sets, daily range): BP systolic 10–145; BP diastolic 54–95; BMI 32.0
[2024-02-03] MEDS: FLAGYL 500 MG 100 IV ×2 (01:20→16:55)
[2024-02-03] MEDS: NSS 1000 IV ×2 (01:31→16:57)
[2024-02-03 06:39] LABS: % Basophils 0.3 % (0-2); % Eosinophils 4.1 % (0-6); % Immature Granulocytes 0.3 % (0-0.5); % Lymphocytes 8.6 % (20.5-51.1); % Monocytes 12.3 % (1.7-9.3); % Neutrophils 74.4 % (42.2-75.2); Absolute Eosinophils 0.3 10^3/uL (0-0.7); Absolute Lymphocytes 0.6 10^3/uL (1.2-3.4); Absolute Monocytes 0.9 10^3/uL (0.1-0.6); Absolute Neutrophils 5.4 10^3/uL (1.4-6.5); Hematocrit 35.6 % (39.0-52.0); Hemoglobin 11.9 g/dL (13.0-18.0); Mean Corp Hgb Conc. 33.4 g/dL (33.0-37.0); Mean Corpuscular Volume 92.7 fL (80.0-94.0); Mean Platelet Volume 10.3 fL (7.4-10.4); Nucleated Red Blood Cells % 0 % (-); Platelet Count 136 10^3/uL (130-400); Red Blood Cell Count 3.84 10^6/uL (4.70-6.10); Red Cell Dist. Width 13.3 % (11.5-14.5); White Blood Cell Count 7.3 10^3/uL (4.8-10.8)
[2024-02-03 06:46] LABS: ALT (SGPT) 64 U/L (0-50); AST (SGOT) 49 U/L (17-59); Albumin 3.5 g/dl (3.5-5.0); Alkaline Phosphatase 104 U/L (38-126); Blood Urea Nitrogen 12 mg/dl (9-20); Calcium 8.8 mg/dl (8.4-10.2); Carbon Dioxide 26 mmol/L (22-30); Chloride 106 mmol/L (98-107); Estimated Creatinine Clearance 108 ml/min; Glucose 77 mg/dl (70-99); Lipase 93 U/L (23-300); Sodium 138 mmol/L (135-145); Total Bilirubin 1.2 mg/dl (0.2-1.3); Total Protein 5.9 g/dl (6.3-8.2); eGFR > 60.00
--- NOTE | 2024-02-03 08:05 | W.PN.GS2 ---
Today's Communication / Plan
-
-- Laparoscopic cholecystectomy with possible cholangiogram
Assessment / Plan
-
Patient is a 78 yo M p/w gallstone pancreatitis and chronic cholecystitis
Clinically improved, denies abdominal pain
MRCP (02/01/2024): No evidence of cholecystitis, no evidence of choledocholithiasis
AVSS
Bump in bilirubin and LFTs possibly related to passed stone, trending down
The natural history and pathophysiology of biliary and stone disease has been discussed. Anatomy was reviewed. Role of cholecystectomy in preventing future episodes of choledocholithiasis or gallstone pancreatitis were reviewed. We discussed a
laparoscopic cholecystectomy with possible cholangiogram. The procedure itself, as well as the risks, benefits, and alternatives was discussed. Specifically, we discussed the risks of bleeding, infection, injury to surrounding structures (bowel,
bile ducts), CBD injury, need for open procedure. We discussed that given his multiple prior episodes he likely has an element of chronic cholecystitis with a potential more difficult gallbladder and increased risk for complications. Typical post
procedure recovery was discussed. All questions answered. Consent signed.
-- Laparoscopic cholecystectomy with possible cholangiogram
-- NPO
-- Abx: Levo/Flagyl
Subjective Data
-
Date of Service: February 03, 2024
Denies any abdominal pain. No nausea or vomiting. No fevers or chills.
Objective Data
-
Intake and Output
02/02/24 02/03/24 02/04/24
06:59 06:59 06:59
Intake Total 1800 / 1800 2950 / 2950
Balance 1800 / 1800 2950 / 2950
Intake:
IV fluids (Total) 1800 / 1800 2550 / 2550
IV piggybacks 400 / 400
Other:
Number of approximated SMALL 1
amounts of urine
Number of approximated MODERATE 2 1
amounts of urine
Number of approximated LARGE 1
amounts of urine
Vital Signs
Temp Pulse Resp BP Pulse Ox
98.1 F 64 16 133/77 98
02/03/24 07:39 02/03/24 07:39 02/03/24 07:39 02/03/24 07:39 02/03/24 07:39
Lab Results
02/03/24 05:12
02/03/24 05:12
Calcium 8.8 mg/dl (8.4-10.2) 02/03/24 05:12
Total Bilirubin 1.2 mg/dl (0.2-1.3) 02/03/24 05:12
Direct Bilirubin 0.2 mg/dl (0.0-0.4) 02/01/24 05:59
AST 49 U/L (17-59) 02/03/24 05:12
ALT 64 U/L (0-50) H 02/03/24 05:12
Alkaline Phosphatase 104 U/L (38-126) 02/03/24 05:12
Total Protein 5.9 g/dl (6.3-8.2) L 02/03/24 05:12
Albumin 3.5 g/dl (3.5-5.0) 02/03/24 05:12
Physical Exam
-
Gen: NAD
Abd: soft, NT/ND, non-peritoneal, negative Manzano's sign
[2024-02-03] MEDS: PROTONIX IV 40 MG IV (09:23)
[2024-02-03] MEDS: NSS (PRESERVATIVE FREE) 10 ML IV (09:23)
--- NOTE | 2024-02-03 09:50 | W.PN.HOSP.TC ---
Today's Communication/Plan
-
for surgical intervention later today
Assessment / Plan
Assessment / Plan
A/P: Patient is a 78y M with PMH significant for A-Fib and hypothyroidism who presents to ED complaining of abdominal pain.
Symptomatic Cholelithiasis
Gallstone Pancreatitis secondary to the above
- Doing better, pain resolved
- discussed with surgery, for lucita later this morning
- GI and Surgery input appreciated
MRCP: 1. Cholelithiasis without MR evidence for acute cholecystitis.
2. No choledocholithiasis or biliary dilatation.
3. Trace ascites.
- Follow for clinical improvement.
- Holding Xarelto acutely, resume when cleared by surgery
AST 543-->263-->96-->49
ALT 207-->179-->102-->64
Lipase >4000-->1106-->93
Reviewed with in room this morning, for surgical intervention
Permanent Atrial Fibrillation
- Stable. In A-Fib with controlled rate on no chronotropic medications.
- Hold Xarelto acutely as noted above.
Input of Dr. Chavez appreciated, has been cleared for surgery
Chronic HFpEF
- Stable. Holding Lasix acutely while on IVF replacement.
- Follow I/Os, daily weights, etc.
- Restart usual diuretic regimen once reliably taking POs.
Hypothyroidism
- Stable. Continue brand-necessary Synthroid. Pt wants to take at 11 PM as he does at home, timing adjusted
DVT Prophylaxis: SCDs while Xarelto on hold.
extensive multiple visits >60 minutes in total
Code Status: Full
Anticipated Discharge: 24 - 48 hours
Subjective/Interval History
-
Date of Service: February 03, 2024
No pain
Objective Data
-
Labs:
Laboratory Results
07/28/24
05:12
WBC 7.3
Hgb 11.9 L
Hct 35.6 L
Plt Count 136
Sodium 138
Potassium 4.0
Chloride 106
Carbon Dioxide 26
BUN 12
Creatinine 0.7
Glucose 77
Calcium 8.8
Total Bilirubin 1.2
AST 49
ALT 64 H
Alkaline Phosphatase 104
Vital Signs:
Vital Signs
Temp Pulse Resp BP Pulse Ox
98.1 F 64 16 133/77 98
02/03/24 07:39 02/03/24 07:39 02/03/24 07:39 02/03/24 07:39 02/03/24 07:39
I&O
02/02/24 02/03/24 02/04/24
06:59 06:59 06:59
Intake Total 1800 / 1800 2950 / 2950
Balance 1800 / 1800 2950 / 2950
Review of Systems
-
History Source: Patient, Physician and Coordinated Provider
Constitutional: Denies Fever
EENT: Reports No Symptoms Reported
Respiratory: Reports No Symptoms; Denies Trouble Breathing
Cardiac: Reports No Symptoms; Denies Chest Pain
Abdomen/GI: Reports Abdominal Pain (resolved) and Nausea (resolved)
Genitourinary: Reports No Symptoms
Physical Exam
-
General: Well Developed, Well Nourished and No Apparent Distress
HEENT: Normocephalic, Atraumatic and Moist Mucous Membranes
Respiratory: Clear to Auscultation; Negative Wheezes, Rales or Rhonchi
Cardiac: Regular Rhythm and S1/S2
GI: Soft, Nondistended and Tender (essentially nontender); Negative Normal Bowel Sounds (decreased, but present)
Neuro: Awake, Alert and Oriented
--- NOTE | 2024-02-03 12:38 | W.IMMPOSTOP ---
Addendum entered and electronically signed by Bob Vasquez MD 02/03/24 20:43:
[facility]#[id number]
Original Note:
Surgical Immed Post Op Note
-
Primary Surgeon: Christina
Assisting Surgeon: None
Pre-op Diagnosis: Gallstone pancreatitis and chronic cholecystics
Post-op Diagnosis: Gallstone pancreatitis and chronic cholecystitis
Procedure Performed: Laparoscopic cholecystectomy and IOC
Anesthesia Type: General
Specimen / Cultures:
1. Gallbladder
Estimated Blood Loss: 23 cc
Complications: None
Operative Findings:
1. Severe chronic inflation, impacted stone at fundus, multiple small stones
2. Top down partial cholecystectomy to infundibulum, cystic duct 1-2 mm identified laterally
3. IOC with taut catheter confirming anatomy and emptying into duodenum
4. Artery doubly clipper, cystic quad clipped
5. 19 Fr Selvin drain into operative field
--- NOTE | 2024-02-03 12:42 | W.SUR.PREOP ---
Pre-Operative Surgical Note
-
I have examined this patient prior to the performance of the scheduled procedure.
The patient's condition is unchanged from the time of the current History and
Physical and the patient is able to undergo the scheduled procedure.
[2024-02-03] MEDS: FLAGYL 500 MG IV (13:04)
[2024-02-03] MEDS: LEVAQUIN IV (13:05)
[2024-02-03] MEDS: TORADOL 10 MG IV ×2 (16:56→23:59)
--- NOTE | 2024-02-03 17:50 | PTCARENOTE ---
1430: return from sx. AOx3 , local to abd no pain currently, 100mls NSS via RW. 3 laps rt JF (SS yellow), Low FAt diet. Has a REYES. PACU offered coffee is still sipping that is what he would like currently. Bed low, call ryan in reach
[2024-02-03] MEDS: LOVENOX 40 MG SC (18:21)
[2024-02-03] MEDS: SYNTHROID 75 MCG PO (23:19)
[2024-02-03] MEDS: MELATONIN 10 MG PO (23:24)
[2024-02-04] MEDS: FLAGYL 500 MG 100 IV ×2 (01:58→09:47)
[2024-02-04] MEDS: NSS 1000 IV (01:58)
[2024-02-04 03:45] VITALS: BP 118/64
[2024-02-04 07:00] VITALS: BP 127/81
--- NOTE | 2024-02-04 08:24 | W.PN.GS2 ---
Today's Communication / Plan
-
Dispo planning
JF drain teaching.
Assessment / Plan
-
Patient is a 78 yo M p/w gallstone pancreatitis and chronic cholecystitis now status post POD 1 laparoscopic cholecystectomy with cholangiogram.
Will repeat CBC and CMP today.
JF drain teaching.
Anticipate discharge home today with the drain with follow-up in 1 week for possible removal.
Okay to resume Xarelto on the morning of 02/05
Discharge instructions updated.
Time Spent
Total Time Spent with Patient (in minutes): 20
Subjective Data
-
Date of Service: February 04, 2024
Interval Events:
No acute events overnight. Slept well. Pain Controlled. Denies Nausea/Vomiting, +bowel function. Tolerating diet.
Objective Data
-
Intake and Output
02/03/24 02/04/24 02/05/24
06:59 06:59 06:59
Intake Total 2950 / 2950 2820 / 2820
Output Total 1458 / 1458
Balance 2950 / 2950 1362 / 1362
Intake:
Oral fluids 720 / 720
IV fluids (Total) 2550 / 2550 1900 / 1900
Normosol 100 / 100
IV piggybacks 400 / 400 200 / 200
Output:
Drain Output (Total) 108 / 108
Right Middle Abdomen Willian- 108 / 108
Zurita A
Urine, Voided 1350 / 1350
Other:
Number of approximated MODERATE 1
amounts of urine
Number of approximated LARGE 1
amounts of urine
Vital Signs
Temp Pulse Resp BP Pulse Ox
98.3 F 87 12 127/81 97
02/04/24 07:00 02/04/24 07:00 02/04/24 07:00 02/04/24 07:00 02/04/24 07:00
Calcium 8.8 mg/dl (8.4-10.2) 02/03/24 05:12
Total Bilirubin 1.2 mg/dl (0.2-1.3) 02/03/24 05:12
Direct Bilirubin 0.2 mg/dl (0.0-0.4) 02/01/24 05:59
AST 49 U/L (17-59) 02/03/24 05:12
ALT 64 U/L (0-50) H 02/03/24 05:12
Alkaline Phosphatase 104 U/L (38-126) 02/03/24 05:12
Total Protein 5.9 g/dl (6.3-8.2) L 02/03/24 05:12
Albumin 3.5 g/dl (3.5-5.0) 02/03/24 05:12
Physical Exam
-
GENERAL/NEURO: Awake, Alert, no distress
CHEST: Unlabored breathing on RA
ABDOMEN: Soft, Non-Tender, Non-Distended, incisions clean dry and intact. JF with serosanguineous drainage.
[2024-02-04] MEDS: PROTONIX IV 40 MG IV (08:25)
[2024-02-04] MEDS: NSS (PRESERVATIVE FREE) 10 ML IV (08:25)
[2024-02-04 09:18] LABS: % Basophils 0.1 % (0-2); % Immature Granulocytes 0.2 % (0-0.5); % Lymphocytes 5.9 % (20.5-51.1); % Monocytes 8.1 % (1.7-9.3); % Neutrophils 85.7 % (42.2-75.2); Absolute Lymphocytes 0.6 10^3/uL (1.2-3.4); Absolute Monocytes 0.8 10^3/uL (0.1-0.6); Hematocrit 35.5 % (39.0-52.0); Hemoglobin 12.1 g/dL (13.0-18.0); Mean Corp Hgb Conc. 34.1 g/dL (33.0-37.0); Mean Corpuscular Hgb 31.1 pg (27.0-31.0); Mean Corpuscular Volume 91.3 fL (80.0-94.0); Mean Platelet Volume 9.5 fL (7.4-10.4); Nucleated Red Blood Cells % 0 % (-); Platelet Count 152 10^3/uL (130-400); Red Blood Cell Count 3.89 10^6/uL (4.70-6.10); Red Cell Dist. Width 13.2 % (11.5-14.5); White Blood Cell Count 9.4 10^3/uL (4.8-10.8)
[2024-02-04 09:43] LABS: ALT (SGPT) 50 U/L (0-50); AST (SGOT) 43 U/L (17-59); Albumin 3.6 g/dl (3.5-5.0); Alkaline Phosphatase 101 U/L (38-126); Blood Urea Nitrogen 22 mg/dl (9-20); Calcium 8.5 mg/dl (8.4-10.2); Carbon Dioxide 21 mmol/L (22-30); Chloride 106 mmol/L (98-107); Estimated Creatinine Clearance 94 ml/min; Glucose 102 mg/dl (70-99); Potassium 4.2 mmol/L (3.5-5.1); Sodium 137 mmol/L (135-145); Total Bilirubin 0.6 mg/dl (0.2-1.3); Total Protein 6.1 g/dl (6.3-8.2); eGFR > 60.00
[2024-02-04] MEDS: NSS IV (09:46)
[2024-02-04] MEDS: LEVAQUIN 100 IV (09:48)
--- NOTE | 2024-02-04 11:08 | W.PN.CD ---
Today's Communication / Plan
-
Overall stable from a cardiology standpoint timing of discharge as directed by general surgery. Please resume anticoagulation as soon as surgery feels it safe.
Impression / Plan
-
Bradycardia/slow Afib - stable.
- asymptomatic.
- not on rate controlling meds.
-Pauses 2.9 during sleep
-No clear indication for pacing at this time we will continue to monitor as outpatient.
Afib - permanent.
- rates in the 50s-60s.
- typically on Xarelto, on hold since plans for OR.
- resume Xarelto as soon as general surgery feels it safe. Plans regarding postop anticoagulation as outlined by general surgery.
Postop cholecystectomy drain still in place management as directed by GEN surgery.
.
Dilated aortic root - ascending aorta 4.4cm.
- stable.
Hypothyroidism - stable.
Physical Exam
Vital Signs/Labs
Vital Signs
Temp Pulse Resp BP Pulse Ox
98.3 F 87 12 127/81 95
02/04/24 07:00 02/04/24 07:00 02/04/24 07:00 02/04/24 07:00 02/04/24 08:00
02/03/24 02/04/24 02/05/24
06:59 06:59 06:59
Actual Weight 101.196 kg
02/04/24 09:09
02/04/24 09:09
Physical Exam
Constitutional: No acute distress
Cardiovascular: Rhythm/rate is irregular
Respiratory: Wheeze Absent and Rhonchi Absent
GI: Soft, Non tender and Normal bowel sounds
Neuro/Psych: Alert, Oriented and AO x 3
Data Reviewed
-
Date of Service: February 04, 2024
Medical Decision Making: Reviewed Test Results
Echo: Report Reviewed by me
Medical Tests (PFT, Pathology etc): Report Reviewed by me
Labs: Labs Reviewed by me
[2024-02-04 11:15] VITALS: BP 107/71
--- NOTE | 2024-02-04 11:48 | CM ---
barn manager reviewed patient's chart and spoke with patient and plan is to home with visiting nurses, options reviewed and patient has selected [facility], referral sent to [facility].
Plan; Home with spouse and [facility]
[phone]
[2024-02-04 15:00] VITALS: BP 104/62
--- NOTE | 2024-02-04 15:12 | W.DS.TRANS ---
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
-
Discharge Instructions:
Sleep Apnea Risk Low
Discharge Diagnosis/Procedures Laparoscopic cholecystectomy with intraoperative
cholangiogram
Diet Low Fat,Regular
Additional Diets If issues with bloating or diarrhea follow a low
-fat diet
Activity No strenuous activity
Additional Activity No heavy lifting (>20 lbs) or strenuous
activities for 2 weeks postoperatively
Driving Restrictions No driving if too sore or taking narcotics
Bathing Restrictions OK to Shower
Wound Care Keep incisions clean and dry. Glue will flake
off in 2 to 3 weeks. Stitches will dissolve.
Empty and record JF outputs daily. Follow-up in
1 week to review possible removal in the office
.
Instructions:
Stand-Alone Forms:
Changes to Home Medications: No
Discharge Medications:
DC Medications w/original date entered in [employer]
furosemide 20 mg tablet 20 mg PO DAILY Fluid Retention/Swelling 01/31/24
levothyroxine 75 mcg tablet (Synthroid) 75 mcg PO HS Thyroid 01/31/24
melatonin 10 mg tablet 10 mg PO HS PRN sleep 01/31/24
krnsbutk-ow-nbhci 300 mcg-K 60 mcg-lycop 600 mcg-lutein 300 mcg tablet (Centrum Silver Men) 1 tab PO DAILY Supplement 01/31/24
rivaroxaban 20 mg tablet (Xarelto) 20 mg PO DAILY Blood Clot Prevention/Tx 01/31/24
cholecalciferol (vitamin D3) 25 mcg (1,000 unit) tablet 25 mcg PO DAILY Supplement 02/01/24
polyethylene glycol 3350 17 gram oral powder packet (Miralax) 17 g PO DAILY Constipation 02/01/24
oxycodone 5 mg tablet 5 mg PO Q4HPRN PRN breakthrough/severe pain #10 tabs 02/03/24
Home Medication Changes
Pending Results: No
--- NOTE | 2024-02-04 16:32 | W.DS.TRANS ---
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
-
Discharge Instructions:
Sleep Apnea Risk Low
Discharge Diagnosis/Procedures Laparoscopic cholecystectomy with intraoperative
cholangiogram
Diet Low Fat,Regular
Additional Diets If issues with bloating or diarrhea follow a low
-fat diet
Activity No strenuous activity
Additional Activity No heavy lifting (>20 lbs) or strenuous
activities for 2 weeks postoperatively
Driving Restrictions No driving if too sore or taking narcotics
Bathing Restrictions OK to Shower
Wound Care Keep incisions clean and dry. Glue will flake
off in 2 to 3 weeks. Stitches will dissolve.
Empty and record JF outputs daily. Follow-up in
1 week to review possible removal in the office
.
Instructions:
Stand-Alone Forms:
Changes to Home Medications: No
Discharge Medications:
DC Medications w/original date entered in [employer]
furosemide 20 mg tablet 20 mg PO DAILY Fluid Retention/Swelling 01/31/24
levothyroxine 75 mcg tablet (Synthroid) 75 mcg PO HS Thyroid 01/31/24
melatonin 10 mg tablet 10 mg PO HS PRN sleep 01/31/24
tpdcrmle-mw-hdihb 300 mcg-K 60 mcg-lycop 600 mcg-lutein 300 mcg tablet (Centrum Silver Men) 1 tab PO DAILY Supplement 01/31/24
rivaroxaban 20 mg tablet (Xarelto) 20 mg PO DAILY Blood Clot Prevention/Tx 01/31/24
cholecalciferol (vitamin D3) 25 mcg (1,000 unit) tablet 25 mcg PO DAILY Supplement 02/01/24
polyethylene glycol 3350 17 gram oral powder packet (Miralax) 17 g PO DAILY Constipation 02/01/24
oxycodone 5 mg tablet 5 mg PO Q4HPRN PRN breakthrough/severe pain #10 tabs 02/03/24
Home Medication Changes
Pending Results: Yes
Additional Pending Results:
TFT
[2024-02-04 20:16] LABS: TSH Reflex To Free T4 1.41 uIU/ml (0.47-4.68)
== END 2024-02-04 17:15 | disposition home health service (06) | DRG 418 ==
LOC: 2 SOUTH 00:22
PROVIDERS: Emergency Medicine; Internal Medicine; Surgery; ADMITTING PHYSICIAN Hospitalist; ATTENDING PHYSICIAN Internal Medicine; CONSULT PHYSICIAN Internal Medicine; CONSULT PHYSICIAN Internal Medicine Cardiovascular Disease; EMERGENCY PHYSICIAN Emergency Medicine; FAMILY PHYSICIAN Family Medicine; OTHER PHYSICIAN Surgery
PROC: BF131ZZ Fluoroscopy of Gallbladder and Bile Ducts using Low Osmolar Contrast (ICD-10-PCS; 2024-02-03)
PROC: 0FT44ZZ Resection of Gallbladder, Percutaneous Endoscopic Approach (ICD-10-PCS; 2024-02-03)
DX: K85.10 Biliary acute pancreatitis without necrosis or infection (principal); I48.21 Permanent atrial fibrillation; I50.32 Chronic diastolic (congestive) heart failure; K80.10 Calculus of gallbladder with chronic cholecystitis without obstruction; E03.9 Hypothyroidism, unspecified; R00.1 Bradycardia, unspecified; I77.810 Thoracic aortic ectasia; Z79.01 Long term (current) use of anticoagulants
CPT/HCPCS: 88304; 74174; 74181; 74300; 76000; 76705; 80053; 82248; 83605; 83690; 84443; 85025; 85027; 93005; 96361; 96374; 99285; A4300; Q9967

== ENCOUNTER → 2024-04-24 10:55 | Outpatient (REF) | payer MEDICARE, SELFPAY | LOC: RCS 10:55 | PROVIDERS: ATTENDING PHYSICIAN Internal Medicine Cardiovascular Disease; FAMILY PHYSICIAN Family Medicine | DX: I48.91 Unspecified atrial fibrillation (principal); I48.20 Chronic atrial fibrillation, unspecified; I77.810 Thoracic aortic ectasia | CPT/HCPCS: 93306 ==

== ENCOUNTER → 2024-09-15 10:19 | Outpatient (REF) | payer MEDICARE, SELFPAY | LOC: RAD 10:19 | PROVIDERS: ATTENDING PHYSICIAN Family Medicine; REFERRING PHYSICIAN Internal Medicine | DX: M54.2 Cervicalgia (principal); M54.12 Radiculopathy, cervical region | CPT/HCPCS: 72052 ==

== ENCOUNTER → 2024-09-25 08:25 | Outpatient (REF) | payer MEDICARE, SELFPAY ==
[2024-09-25 09:21] LABS: % Basophils 0.7 % (0-2); % Eosinophils 2.2 % (0-6); % Immature Granulocytes 0.4 % (0-0.5); % Lymphocytes 23.2 % (20.5-51.1); % Monocytes 11.9 % (1.7-9.3); % Neutrophils 61.6 % (42.2-75.2); Absolute Eosinophils 0.1 10^3/uL (0-0.7); Absolute Lymphocytes 1.1 10^3/uL (1.2-3.4); Absolute Monocytes 0.5 10^3/uL (0.1-0.6); Absolute Neutrophils 2.8 10^3/uL (1.4-6.5); Hemoglobin 14.7 g/dL (13.0-18.0); Mean Corp Hgb Conc. 32.7 g/dL (33.0-37.0); Mean Corpuscular Hgb 30.6 pg (27.0-31.0); Mean Corpuscular Volume 93.8 fL (80.0-94.0); Mean Platelet Volume 9.8 fL (7.4-10.4); Nucleated Red Blood Cells % 0 % (-); Platelet Count 152 10^3/uL (130-400); White Blood Cell Count 4.5 10^3/uL (4.8-10.8)
[2024-09-25 09:42] LABS: NT-proBNP 692 pg/ml
[2024-09-25 11:35] LABS: ALT (SGPT) 14 U/L (0-50); AST (SGOT) 24 U/L (17-59); Albumin 4.3 g/dl (3.5-5.0); Alkaline Phosphatase 77 U/L (38-126); Blood Urea Nitrogen 19 mg/dl (9-20); Calcium 9.5 mg/dl (8.4-10.2); Carbon Dioxide 28 mmol/L (22-30); Chloride 104 mmol/L (98-107); Glucose 89 mg/dl (70-99); Potassium 4.5 mmol/L (3.5-5.1); Sodium 140 mmol/L (135-145); Total Bilirubin 0.8 mg/dl (0.2-1.3); Total Protein 7.1 g/dl (6.3-8.2); eGFR > 60.00
[2024-09-25 11:50] LABS: Free T4 0.87 ng/dl (0.78-2.19)
[2024-09-25 12:04] LABS: TSH 6.95 uIU/ml (0.47-4.68)
== END ==
LOC: RAD 08:25
PROVIDERS: ATTENDING PHYSICIAN Nurse Practitioner Family; FAMILY PHYSICIAN Family Medicine
DX: R06.02 Shortness of breath (principal); R07.89 Other chest pain; I77.810 Thoracic aortic ectasia; E03.9 Hypothyroidism, unspecified; I48.21 Permanent atrial fibrillation
CPT/HCPCS: 36415; 71046; 80053; 83880; 84439; 84443; 85025; 93005

== ENCOUNTER → 2024-10-02 13:06 | Outpatient (REF) | payer MEDICARE, SELFPAY | LOC: PAVMRI 13:06 | PROVIDERS: ATTENDING PHYSICIAN Family Medicine; FAMILY PHYSICIAN Internal Medicine | DX: M54.2 Cervicalgia (principal); M54.12 Radiculopathy, cervical region | CPT/HCPCS: 72141 ==

== ENCOUNTER → 2024-10-19 09:00 | Outpatient (REF) | payer MEDICARE, SELFPAY | LOC: RCS 09:00 | PROVIDERS: ATTENDING PHYSICIAN Nurse Practitioner; FAMILY PHYSICIAN Family Medicine | DX: R06.09 Other forms of dyspnea (principal) | CPT/HCPCS: 93225; 93226 ==

== ENCOUNTER → 2024-10-21 07:38 | Outpatient (REF) | payer MEDICARE, SELFPAY | LOC: HWRCS 07:38 | PROVIDERS: ATTENDING PHYSICIAN Nurse Practitioner; FAMILY PHYSICIAN Family Medicine | DX: R07.89 Other chest pain (principal) | CPT/HCPCS: 78452; 93017; A9500; J2785 ==

== ENCOUNTER → 2024-11-06 13:45 | Outpatient (REF) | payer MEDICARE, SELFPAY | LOC: RCS 13:45 | PROVIDERS: ATTENDING PHYSICIAN Internal Medicine Cardiovascular Disease; FAMILY PHYSICIAN Family Medicine | DX: R93.1 Abnormal findings on diagnostic imaging of heart and coronary circulation (principal) | CPT/HCPCS: 93306 ==

== ENCOUNTER → 2024-11-19 07:41 | Outpatient (REF) | payer MEDICARE, SELFPAY | LOC: RAD 07:41 | PROVIDERS: ATTENDING PHYSICIAN Internal Medicine Cardiovascular Disease; FAMILY PHYSICIAN Family Medicine | DX: Z79.01 Long term (current) use of anticoagulants (principal) | CPT/HCPCS: 71275; Q9967 ==

== ENCOUNTER → 2025-04-16 08:09 | Outpatient (REF) | payer MEDICARE, SELFPAY ==
[2025-04-16 09:44] LABS: HDL Cholesterol 51 mg/dl; LDL Cholesterol, Calculated 91 mg/dl; Very Low Density Lipoprotein 16 mg/dl (0-30)
== END ==
LOC: REG 08:09
PROVIDERS: ATTENDING PHYSICIAN Internal Medicine Endocrinology, Diabetes & Metabolism; FAMILY PHYSICIAN Family Medicine; REFERRING PHYSICIAN Internal Medicine Cardiovascular Disease
DX: E06.3 Autoimmune thyroiditis (principal); R06.09 Other forms of dyspnea; R07.89 Other chest pain; I48.21 Permanent atrial fibrillation; Z79.01 Long term (current) use of anticoagulants; I71.21 Aneurysm of the ascending aorta, without rupture
CPT/HCPCS: 36415; 80061; 84443